=== PATIENT | female | born 1980 | race Caucasian/White ===

== ENCOUNTER 2019-04-29 19:36 | Emergency (ER) | payer MEDICARE ==
[~2019-04-29] VITALS: Ht 170.2 cm; Wt 161.0 kg
--- OUTSIDE RECORDS SUMMARY | 2019-04-29 19:38 | XMS REPORT ---
[facility] Address Unknown Phone Unavailable Care Team Providers Care Eligibility Counselor Name Role Phone Unavailable Unavailable Payers Payer Name Policy Type Policy Number Effective Date Expiration Date Problems This patient has no known problems. Allergies, Adverse Reactions, Alerts Allergy Name Allergy Type Status Severity Reaction(s) Onset Date Inactive Date Treating Clinician Comments No Known Allergies DA Active U 2019-04-23 00:00:00 No Known Allergies DA Active U 2019-03-21 00:00:00 No Known Allergies DA Active U 2018-08-13 00:00:00 No Known Allergies DA Active U 2017-08-14 00:00:00 Medications This patient has no known medications. Results Test Description Test Time Test Comments Text Results Atomic Results Result Comments URINALYSIS COMPLETE 2019-04-22 22:45:00 UA COLOR (test code=COLU) YELLOW YELLOW UA APPEARANCE (test code=APPU) CLEAR CLEAR UA GLUCOSE DIPSTICK (test code=DGLUU) norm mg/dL NEGATIVE UA BILIRUBIN DIPSTICK (test code=BILU) NEGATIVE mg/dL NEGATIVE UA KETONE DIPSTICK (test code=KETU) neg mg/dL NEGATIVE UA SPECIFIC GRAVITY (test code=SGU) 1.015 1.001-1.035 UA BLOOD DIPSTICK (test code=NORMAN) neg Alek/uL NEGATIVE UA PH DIPSTICK (test code=BOLA) 5.0 5.0-8.0 UA PROTEIN DIPSTICK (test code=PROU) neg mg/dL Neg-15 UA UROBILINIOGEN DIPSTICK (test code=URO) norm mg/dL 0.0-0.2 UA NITRITE DIPSTICK (test code=ORIANA) NEGATIVE NEGATIVE UA LEUKOCYTE ESTERASE DIPSTICK (test code=LEUU) 100 Arleen/uL (1+) uL NEGATIVE UA WBC (test code=WBCU) 3-5 per HPF 0-5 UA RBC (test code=RBCU) NONE SEEN per HPF 0-5 UA EPITHELIAL CELLS (test code=EPIU) Few (2-5/hpf) per HPF Few UA BACTERIA (test code=BACU) FEW per HPF NONE Urine Source? Clean CatchDRUGS OF ABUSE SCREEN [id number] 22:45:00* Test Item Value Reference Range Comments URN COCAINE (test code=COCAURN) NEGATIVE NEGATIVE URN CANNABINOIDS (test code=CANNABURN) POSITIVE NEGATIVE URN AMPHETAMINE (test code=AMPHETURN) NEGATIVE NEGATIVE URN BARBITURATE (test code=BARBITURN) NEGATIVE NEGATIVE URN BENZODIAZEPINE (test code=BENZOURN) NEGATIVE NEGATIVE URN OPIATES (test code=OPIATURN) NEGATIVE NEGATIVE URN PHENCYCLIDINE (PCP) (test code=PHENCURN) NEGATIVE NEGATIVE Urine Source? Clean Catch- XR CHEST 1 [id number] 22:32:00 Name: SANTANA LEE [facility] : 1980 Age/S:38 /F [address] [facility] Unit#:[id number] Loc: [place] [address] Phys: Sharon Cook MD Dis Date: PHONE #: [phone] Status: REG ER FAX #: [phone] Exam Date: 04/22/2019 Reason: CHEST PAIN EXAMS: CPT CODE: [id number] XR CHEST 1 V 24239 EXAM: Chest X-ray, 1 view; CLINICAL HISTORY: Chest pain; FINDINGS: The lungs are clear, no infiltrates, no edema; no effusions; no pneumothorax; normal cardiomediastinal silhouette. No change compared with a study from March 21, 2019. IMPRESSION: Normal chest x-ray. Location code: [facility] at 2232 Reported and signed by: Bean Ely M.D. CC: Technologist: MARILY LAMBERT RT(R),CT Trnscrpt Data: 04/22/2019 (2231) Gio Orig Print D/T: S: 04/22/2019 (4636) PAGE 1 Signed Report URINALYSIS [id number] 22:31:00* Test Item Value Reference Range Comments UA COLOR (test code=COLU) YELLOW YELLOW UA APPEARANCE (test code=APPU) CLEAR CLEAR UA GLUCOSE DIPSTICK (test code=DGLUU) norm mg/dL NEGATIVE UA BILIRUBIN DIPSTICK (test code=BILU) NEGATIVE mg/dL NEGATIVE UA KETONE DIPSTICK (test code=KETU) neg mg/dL NEGATIVE UA SPECIFIC GRAVITY (test code=SGU) 1.015 1.001-1.035 UA BLOOD DIPSTICK (test code=NORMAN) neg Alek/uL NEGATIVE UA PH DIPSTICK (test code=BOLA) 5.0 5.0-8.0 UA PROTEIN DIPSTICK (test code=PROU) neg mg/dL Neg-15 UA UROBILINIOGEN DIPSTICK (test code=URO) norm mg/dL 0.0-0.2 UA NITRITE DIPSTICK (test code=ORIANA) NEGATIVE NEGATIVE UA LEUKOCYTE ESTERASE DIPSTICK (test code=LEUU) 100 Arleen/uL (1+) uL NEGATIVE UA WBC (test code=WBCU) 3-5 per HPF 0-5 UA RBC (test code=RBCU) NONE SEEN per HPF 0-5 UA EPITHELIAL CELLS (test code=EPIU) Few (2-5/hpf) per HPF Few UA BACTERIA (test code=BACU) FEW per HPF NONE Urine Source? Clean CatchDRUGS OF ABUSE SCREEN [id number] 22:31:00* Test Item Value Reference Range Comments URN COCAINE (test code=COCAURN) NEGATIVE URN CANNABINOIDS (test code=CANNABURN) NEGATIVE URN AMPHETAMINE (test code=AMPHETURN) NEGATIVE URN BARBITURATE (test code=BARBITURN) NEGATIVE URN BENZODIAZEPINE (test code=BENZOURN) NEGATIVE URN OPIATES (test code=OPIATURN) NEGATIVE URN PHENCYCLIDINE (PCP) (test code=PHENCURN) NEGATIVE Urine Source? Clean CatchURINALYSIS [id number] 22:28:00* Test Item Value Reference Range Comments UA COLOR (test code=COLU) YELLOW YELLOW UA APPEARANCE (test code=APPU) CLEAR CLEAR UA GLUCOSE DIPSTICK (test code=DGLUU) norm mg/dL NEGATIVE UA BILIRUBIN DIPSTICK (test code=BILU) NEGATIVE mg/dL NEGATIVE UA KETONE DIPSTICK (test code=KETU) neg mg/dL NEGATIVE UA SPECIFIC GRAVITY (test code=SGU) 1.015 1.001-1.035 UA BLOOD DIPSTICK (test code=NORMAN) neg Alek/uL NEGATIVE UA PH DIPSTICK (test code=BOLA) 5.0 5.0-8.0 UA PROTEIN DIPSTICK (test code=PROU) neg mg/dL Neg-15 UA UROBILINIOGEN DIPSTICK (test code=URO) norm mg/dL 0.0-0.2 UA NITRITE DIPSTICK (test code=ORIANA) NEGATIVE NEGATIVE UA LEUKOCYTE ESTERASE DIPSTICK (test code=LEUU) 100 Arleen/uL (1+) uL NEGATIVE UA WBC (test code=WBCU) per HPF 0-5 UA RBC (test code=RBCU) per HPF 0-5 UA EPITHELIAL CELLS (test code=EPIU) per HPF Few UA BACTERIA (test code=BACU) per HPF NONE Urine Source? Clean CatchDRUGS OF ABUSE SCREEN [id number] 22:28:00* Test Item Value Reference Range Comments URN COCAINE (test code=COCAURN) NEGATIVE URN CANNABINOIDS (test code=CANNABURN) NEGATIVE URN AMPHETAMINE (test code=AMPHETURN) NEGATIVE URN BARBITURATE (test code=BARBITURN) NEGATIVE URN BENZODIAZEPINE (test code=BENZOURN) NEGATIVE URN OPIATES (test code=OPIATURN) NEGATIVE URN PHENCYCLIDINE (PCP) (test code=PHENCURN) NEGATIVE Urine Source? Clean CatchBASIC METABOLIC [id number] 22:04:00* Test Item Value Reference Range Comments SODIUM (test code=NA) 139 mmol/L 136-145 POTASSIUM (test code=K) 3.9 mmol/L 3.5-5.1 CHLORIDE (test code=CL) 100 mmol/L 101-109 CARBON DIOXIDE (test code=CO2) 30.1 mmol/L 21-32 ANION GAP (test code=GAP) 13 mmol/L 10-20 GLUCOSE (test code=GLU) 98 mg/dL 74-106 BLOOD UREA NITROGEN (test code=BUN) 16 mg/dL 3-21 GLOMERULAR FILTRATION RATE (test code=GFR) 57 mL/min >=60 Estimated GFR by using Modified MDRD formula.Chronic kidney disease is defined as either kidney damageor GFR <60 mL/min/1.73 m2 for >3 months. CREATININE (test code=CREAT) 1.06 mg/dL 0.55-1.3 BUN/CREATININE RATIO (test code=BUN/CREA) 15.1 10-20 CALCIUM (test code=CA) 8.9 mg/dL 8.4-10.2 HEPATIC FUNCTION [id number] 22:04:00* Test Item Value Reference Range Comments TOTAL PROTEIN (test code=PROT) 8.0 g/dL 6.5-8.4 ALBUMIN (test code=ALB) 3.4 g/dL 3.4-4.8 GLOBULIN (test code=GLOB) 4.6 G/DL 1-10 ALBUMIN/GLOBULIN RATIO (test code=A/G) 0.74 RATIO 0.75-1.50 BILIRUBIN TOTAL (test code=BILT) 0.30 mg/dL 0.0-1.0 BILIRUBIN DIRECT (test code=BILD) 0.10 mg/dL 0.0-0.30 SGOT/AST (test code=AST) 22 U/L 6-32 SGPT/ALT (test code=ALT) 23 U/L 12-78 Note: Change in REFERENCE RANGE due to new reagent method. ALKALINE PHOSPHATASE TOTAL (test code=ALKP) 145 U/L 38-126 [id number] 22:04:00* Test Item Value Reference Range Comments LIPASE (test code=LIP) 90 U/L 128-270 [id number] 22:04:00* Test Item Value Reference Range Comments MAGNESIUM (test code=MAG) 1.8 mg/dL 1.6-2.3 HCG SERUM [id number] 22:04:00* Test Item Value Reference Range Comments HCG SERUM QUAL (test code=HCGQL) NEGATIVE NEGATIVE This HCGQL test is NOT applicable for MALE patients.Check with nurse about probable order error.If Tumor Marker Test needed, nurse should order test "HCGTU"(Test #550.24979) [id number] 22:04:00* Test Item Value Reference Range Comments TROPONIN-I (test code=TROPI) <0.015 ng/mL 0.00-0.056 BASIC METABOLIC [id number] 22:00:00* Test Item Value Reference Range Comments SODIUM (test code=NA) 139 mmol/L 136-145 POTASSIUM (test code=K) 3.9 mmol/L 3.5-5.1 CHLORIDE (test code=CL) 100 mmol/L 101-109 CARBON DIOXIDE (test code=CO2) 30.1 mmol/L 21-32 ANION GAP (test code=GAP) 13 mmol/L 10-20 GLUCOSE (test code=GLU) 98 mg/dL 74-106 BLOOD UREA NITROGEN (test code=BUN) 16 mg/dL 3-21 GLOMERULAR FILTRATION RATE (test code=GFR) 57 mL/min >=60 Estimated GFR by using Modified MDRD formula.Chronic kidney disease is defined as either kidney damageor GFR <60 mL/min/1.73 m2 for >3 months. CREATININE (test code=CREAT) 1.06 mg/dL 0.55-1.3 BUN/CREATININE RATIO (test code=BUN/CREA) 15.1 10-20 CALCIUM (test code=CA) 8.9 mg/dL 8.4-10.2 HEPATIC FUNCTION [id number] 22:00:00* Test Item Value Reference Range Comments TOTAL PROTEIN (test code=PROT) 8.0 g/dL 6.5-8.4 ALBUMIN (test code=ALB) 3.4 g/dL 3.4-4.8 GLOBULIN (test code=GLOB) 4.6 G/DL 1-10 ALBUMIN/GLOBULIN RATIO (test code=A/G) 0.74 RATIO 0.75-1.50 BILIRUBIN TOTAL (test code=BILT) 0.30 mg/dL 0.0-1.0 BILIRUBIN DIRECT (test code=BILD) 0.10 mg/dL 0.0-0.30 SGOT/AST (test code=AST) 22 U/L 6-32 SGPT/ALT (test code=ALT) 23 U/L 12-78 Note: Change in REFERENCE RANGE due to new reagent method. ALKALINE PHOSPHATASE TOTAL (test code=ALKP) 145 U/L 38-126 [id number] 22:00:00* Test Item Value Reference Range Comments LIPASE (test code=LIP) 90 U/L 128-270 [id number] 22:00:00* Test Item Value Reference Range Comments MAGNESIUM (test code=MAG) 1.8 mg/dL 1.6-2.3 HCG SERUM [id number] 22:00:00* Test Item Value Reference Range Comments HCG SERUM QUAL (test code=HCGQL) NEGATIVE [id number] 22:00:00* Test Item Value Reference Range Comments TROPONIN-I (test code=TROPI) <0.015 ng/mL 0.00-0.056 B-TYPE NATRIURETIC [id number] 21:51:00* Test Item Value Reference Range Comments B-TYPE NATRIURETIC PEPTIDE (test code=BNP) 13.8 pg/mL 0-100 BASIC METABOLIC [id number] 21:51:00* Test Item Value Reference Range Comments SODIUM (test code=NA) 139 mmol/L 136-145 POTASSIUM (test code=K) 3.9 mmol/L 3.5-5.1 CHLORIDE (test code=CL) 100 mmol/L 101-109 CARBON DIOXIDE (test code=CO2) 30.1 mmol/L 21-32 ANION GAP (test code=GAP) 13 mmol/L 10-20 GLUCOSE (test code=GLU) 98 mg/dL 74-106 BLOOD UREA NITROGEN (test code=BUN) 16 mg/dL 3-21 GLOMERULAR FILTRATION RATE (test code=GFR) 57 mL/min >=60 Estimated GFR by using Modified MDRD formula.Chronic kidney disease is defined as either kidney damageor GFR <60 mL/min/1.73 m2 for >3 months. CREATININE (test code=CREAT) 1.06 mg/dL 0.55-1.3 BUN/CREATININE RATIO (test code=BUN/CREA) 15.1 10-20 CALCIUM (test code=CA) 8.9 mg/dL 8.4-10.2 HEPATIC FUNCTION [id number] 21:51:00* Test Item Value Reference Range Comments TOTAL PROTEIN (test code=PROT) gram/dL 6.4-8.2 ALBUMIN (test code=ALB) g/dL 3.4-5.0 GLOBULIN (test code=GLOB) g/dL 2.7-4.2 ALBUMIN/GLOBULIN RATIO (test code=A/G) 0.75-1.50 BILIRUBIN TOTAL (test code=BILT) mg/dL 0.2-1.2 BILIRUBIN DIRECT (test code=BILD) mg/dL 0.0-0.20 SGOT/AST (test code=AST) IUnit/L 15-37 SGPT/ALT (test code=ALT) U/L 10-69 ALKALINE PHOSPHATASE TOTAL (test code=ALKP) IUnit/L 45-117 [id number] 21:51:00* Test Item Value Reference Range Comments LIPASE (test code=LIP) Unit/L 144-286 [id number] 21:51:00* Test Item Value Reference Range Comments MAGNESIUM (test code=MAG) mg/dL 1.8-2.4 HCG SERUM [id number] 21:51:00* Test Item Value Reference Range Comments HCG SERUM QUAL (test code=HCGQL) NEGATIVE [id number] 21:51:00* Test Item Value Reference Range Comments TROPONIN-I (test code=TROPI) ng/mL 0-0.045 [id number] 21:50:00* Test Item Value Reference Range Comments D-DIMER (test code=DDIMER) 263 ng/ml < 600 CBC W/O [id number] 21:42:00* Test Item Value Reference Range Comments WHITE BLOOD CELL (test code=WBC) 11.5 K/mm3 4.5-12.5 RED BLOOD CELL (test code=RBC) 4.57 mill/mm3 3.7-5.2 HEMOGLOBIN (test code=HGB) 13.3 gram/dL 11.5-15.5 HEMATOCRIT (test code=HCT) 40.0 % 36.0-46.0 MEAN CELL VOLUME (test code=MCV) 87.5 fL 80-98 MEAN CELL HGB (test code=MCH) 29.1 picogram 27.0-33.0 MEAN CELL HGB CONCETRATION (test code=MCHC) 33.3 gram/dL 33.0-36.0 RED CELL DISTRIBUTION WIDTH (test code=RDW) 13.6 % 11.6-16.2 RED CELL DISTRIBUTION WIDTH SD (test code=RDW-SD) 43.2 fL 37.0-51.0 PLATELET COUNT (test code=PLT) 342 K/mm3 150-450 MEAN PLATELET VOLUME (test code=MPV) 10.5 fL 6.7-11.0 - CTA CHEST FOR [id number] 15:04:00 Name: SANTANA LEE [facility] : 1980 Age/S: 38 / F [address] [place] [address] Blvd Unit #: [id number] Loc: [place] [address] Phys: Madan Oconnor Acct: [id number] Dis Date: Status: REG ER PHONE #: [phone] Exam Date: 03/21/2019 1417 FAX #: [phone] Reason: Chest pain, shortness of breath, elevated dimer EXAMS: CPT CODE: [id number] [place] [address] EXAM: CTA CHEST WITH CONTRAST DATE: 03/21/2019 1:07 PM : 1980; Age: 38 years y/o Female INDICATION: Chest pain, shortness of breath, elevated dimer COMPARISON: None TECHNIQUE: Volumetric CT of the chest is acquired during pulmonary arterial phase following intravenous administration of contrast. Coronal and sagittal reconstructions were created. Three-dimensional or MIP reconstructions of the pulmonary arterial system were created at an independent workstation. IV Contrast: 100 mL Isovue DLP: 426 mGy-cm CT imaging performed at this location utilizes radiation dose optimization techniques which include one or more of the following: - Automated exposure control -Adjustment of the mA and/or kV according to patient size -Use of iterative reconstruction technique FINDINGS: Lymph Nodes: There is no mediastinal or hilar lymphadenopathy. No axillary lymphadenopathy. Small calcification is noted in the left thyroid lobe. Heart, pericardium and aorta: The heart is normal in size. Thoracic aorta is normal.. Pulmonary emboli: None. No right heart strain. LUNGS: 3 mm noncalcified nodule along the right major fissure on image 53 of series 2. 3 mm noncalcified nodule in the right lower lobe on image 56. No consolidation. Upper abdomen: No acute findings in visualized upper abdomen. Soft tissues: Normal. Bones: No acute abnormality. Age-related degenerative findings. IMPRESSION: 1. No pulmonary embolism. PAGE 1 Signed Report (CONTINUED) Name: SANTANA LEE [facility] [place] : 1980 Age/S: 38 / F [address] [place] [address] Unit #: [id number] Loc: [place] [address] Phys: Madan Oconnor Acct: [id number] Dis Date: Status: REG ER PHONE #: [phone] Exam Date: 03/21/2019 141 FAX #: [phone] Reason: Chest pain, shortness of breath, elevated dimer EXAMS: CPT C ODE: [id number] [place] [address] <Continued> 2. Two separate 3 mm noncalcified nodule in the right lung. In the absence of risk factors for malignancy, no routine follow- up required. If the patient has a history of smoking or other risk factor to increase their risk of malignancy, then a follow-up chest CT at 12 months is recommended. Reference: Guidelines for Management of Incidental Pulmonary Nodules Detected on CT Images: From the Fleischner Society 2017. FOR INTERNAL CODING PURPOSES ONLY RESULT CODE: [facility] SL: [id number] at 1504 Reported and signed by: Raj Mauricio D.O. CC: Madan BHATT Technologist:RT Re(R)(MRI) CTDI: DLP: Trnscb Date/Time: 03/21/2019 (1504) Clara.[email or web address] Orig Print D/T: S: 03/21/2019 (7090) PAGE 2 Signed Report B-TYPE NATRIURETIC [id number] 13:18:00* Test Item Value Reference Range Comments B-TYPE NATRIURETIC PEPTIDE (test code=BNP) 6.9 PG/ML 0-100 [id number] 13:01:00* Test Item Value Reference Range Comments D-DIMER (test code=DDIMER) 1339 ng/mlFEU <=500 THROMBOSIS AND/OR PULMONARY EMBOLISM AND THE CLINICAL CUT- OFF VALUE FOR EXCLUSION (500 ng/mL FEU) OF THESE CONDITIONSIS VALIDATED BY THE LIVESTOCK LABORER OF THE METHOD. A NEGATIVE D-DIMER RESULT WHEN COMBINED WITH A CLINICALASSESSMENT OF LOW PRETEST PROBABILITY HAS BEEN SHOWN TO HAVEA HIGH NEGATIVE PREDICTIVE VALUE OF DVT OR PE. D-DIMER VALUES >500 ng/mL FEU ARE NOT DIAGNOSTIC FOR DVT, PEor DIC WITHOUT OTHER CONFIRMATORY TESTS AND APPROPRIATECLINICAL EUALUATIONS. PROTHROMBIN [id number] 12:46:00* Test Item Value Reference Range Comments PROTHROMBIN TIME PATIENT (test code=PTP) 11.3 SECONDS 9.3-12.9 INTERNATIONAL NORMAL RATIO (test code=INR) 1.0 0.8-1.2 TARGET INR BY INDICATION Indication INR1. Prophylaxis of venous thrombosis 2.0 - 3.0 (orthopedic surgery), Prophylaxis of venous thrombosis (other than high-risk surgery), Treatment of Deep Vein Thrombosis/Pulmonary Embolism, Prevention of systemic embolism - Tissue heart valves, Acute Myocardial Infarction (to prevent systemic embolism), Valvular heart disease, Atrial Fibrillation, Bileaflet mechanical valve in aortic position.2. Mechanical prosthetic valves (high risk), 2.5 - 3.5 Presence of Lupus Anticoagulant or Antiphospholipid Antibodies, Prevention of systemic embolism - Acute Myocardial Infarction (to prevent recurrent infarct). THROMBOPLASTIN TIME [id number] 12:46:00* Test Item Value Reference Range Comments THROMBOPLASTIN TIME PARTIAL (test code=PTT) 32.8 Seconds 25.0-39.5 Therapeutic Range: 50.4 - 88.3 Seconds Effective 09/25/2018 [id number] 12:45:00* Test Item Value Reference Range Comments MAGNESIUM (test code=MAG) 2.00 mg/dL 1.8-2.4 HCG SERUM [id number] 12:45:00* Test Item Value Reference Range Comments HCG SERUM QUAL (test code=HCGQL) SERUM NEGATIVE NEGATIVE [id number] 12:43:00* Test Item Value Reference Range Comments MAGNESIUM (test code=MAG) mg/dL 1.8-2.4 HCG SERUM [id number] 12:43:00* Test Item Value Reference Range Comments HCG SERUM QUAL (test code=HCGQL) SERUM NEGATIVE NEGATIVE CBC W/AUTO [id number] 12:34:00* Test Item Value Reference Range Comments WHITE BLOOD CELL (test code=WBC) 8.91 x10 3/uL 4.5-11.0 RED BLOOD CELL (test code=RBC) 4.80 x10 6/uL 3.54-5.02 HEMOGLOBIN (test code=HGB) 13.8 g/dL 11.0-15.0 HEMATOCRIT (test code=HCT) 43.1 % 33.0-45.0 MEAN CELL VOLUME (test code=MCV) 89.8 fL 81.0-99.0 MEAN CELL HGB (test code=MCH) 28.8 pg 27.0-33.0 MEAN CELL HGB CONCETRATION (test code=MCHC) 32.0 g/dL 33.0-37.0 RED CELL DISTRIBUTION WIDTH CV (test code=RDW) 13.2 % 11.5-14.5 RED CELL DISTRIBUTION WIDTH SD (test code=RDW-SD) 43.4 fL 37.0-54.0 PLATELET COUNT (test code=PLT) 503 x10 3/uL 150-400 MEAN PLATELET VOLUME (test code=MPV) 9.9 fL 7.0-9.0 NEUTROPHIL % (test code=NT%) 67.4 % 56.0-77.0 IMMATURE GRANULOCYTE % (test code=IG%) 0.2 % 0.0-2.0 LYMPHOCYTE % (test code=LY%) 19.9 % 14.0-32.0 MONOCYTE % (test code=MO%) 8.1 % 4.8-9.0 EOSINOPHIL % (test code=EO%) 4.3 % 0.3-3.7 BASOPHIL % (test code=BA%) 0.1 % 0.0-2.0 NUCLEATED RBC % (test code=NRBC%) 0.0 % 0-0 NEUTROPHIL # (test code=NT#) 6.01 x10 3/uL 2.0-7.6 IMMATURE GRANULOCYTE # (test code=IG#) 0.02 x10 3/uL 0.00-0.03 LYMPHOCYTE # (test code=LY#) 1.77 x10 3/uL 1.0-3.8 MONOCYTE # (test code=MO#) 0.72 x10 3/uL 0.1-0.8 EOSINOPHIL # (test code=EO#) 0.38 x10 3/uL 0.0-0.2 BASOPHIL # (test code=BA#) 0.01 x10 3/uL 0.0-0.2 NUCLEATED RBC # (test code=NRBC#) 0.00 x10 3/uL 0.0-0.1 MANUAL DIFF REQUIRED (test code=MDIFF) NO - XR CHEST 2 [id number] 12:33:00 FAX: Madan Oconnor [phone] [place]: St: REG Name: SANTANA JOHNSON [facility] : [birth year] Age/S: 38/F [address] [place] [address] Unit #: [id number] Loc: [place] [address] Phys: Madan Oconnor Acct: [id number] Dis Date: Status: REG ER PHONE #: [phone] Exam Date: 03/21/2019 1220 FAX #: [phone] Reason: SOB EXAMS: CPT CODE: [id number] XR CHEST 2 V 62494 CLINICAL HISTORY: SOB COMPARISON: November 21, 2018 PA and lateral films of the chest demo nstrate that heart size is normal. Lung rivas are clear. No evidence of pneumonia or congestive failure is seen. Regional skeletal structures de monstrate no acute abnormality. IMPRESSION: No evidence of pneumonia or congestive failure is seen. at 1233 Reported and emelia d by: Sabas Hutchinson M.D. CC: Madan BHATT Technologist: JuniRT Sania(R) Trnscrd Date/Time/By: 03/21/2019 (1233) : By: George Orig Print D/T: S: 03/21/2019 (1233) PAGE 1 Signed Report CHEMISTRY 8 PROFILE 2019-03-21 12:22:00* Test Item Value Reference Range Comments ISTAT-SODIUM (test code=NAP) MMOL/L 134-147 ISTAT-POTASSIUM (test code=KP) MMOL/L 3.4-5.0 ISTAT-CHLORIDE (test code=CLP) MMOL/L 100-108 ISTAT CARBON DIOXIDE (test code=ISTAT-CO2) mmol/L 21-33 ISTAT CALCIUM IONIZED (test code=ISTAT-TAMMIE) MG/DL 1.12-1.32 ISTAT-GLUCOSE (test code=GLUP) MG/DL 70-110 ISTAT-BUN (test code=BUNP) MG/DL 7-18 BEDSIDE CREATININE (test code=CREATBED) MG/DL 0.6-1.3 GLOMERULAR FILTRATION RATE POC (test code=GFRBED) 84 ML/MIN CHEMISTRY 8 [id number] 12:22:00* Test Item Value Reference Range Comments ISTAT-SODIUM (test code=NAP) 138 MMOL/L 134-147 ISTAT-POTASSIUM (test code=KP) 4.1 MMOL/L 3.4-5.0 ISTAT-CHLORIDE (test code=CLP) 99 MMOL/L 100-108 Performed by certified verifier operator at [facility] ISTAT CARBON DIOXIDE (test code=ISTAT-CO2) 28.0 mmol/L 21-33 ISTAT CALCIUM IONIZED (test code=ISTAT-TAMMIE) 1.12 MG/DL 1.12-1.32 ISTAT-GLUCOSE (test code=GLUP) 96 MG/DL 70-110 ISTAT-BUN (test code=BUNP) 16 MG/DL 7-18 BEDSIDE CREATININE (test code=CREATBED) 0.8 MG/DL 0.6-1.3 GLOMERULAR FILTRATION RATE POC (test code=GFRBED) 84 ML/MIN TROPONIN-I [id number] 12:22:00* Test Item Value Reference Range Comments TROPONIN-I RAPID (test code=TROPIRAP) 0.00 ng/mL 0.00-0.08 Performed by certified verifier operator at [facility] Negative: <=0.08 Positive: >=0.09An elevated troponin value alone is not sufficient todiagnose a myocardial infarction. Rather, the patient sclinical presentation (history, physical exam) and ECGshould be used in conjunction with troponin in thediagnostic evaluation of suspected myocardial infarction. Aserial sampling protocol is recommended to facilitate the identification of temporal changes in troponin levels characteristic of GA. LACTIC ACID [id number] 12:11:00* Test Item Value Reference Range Comments LACTIC ACID POC (test code=LACTP) 1.3 MMOL/L 0.90-1.70 Performed by certified verifier operator at [facility] ACUTE HEPATITIS [id number] 11:36:00* Test Item Value Reference Range Comments AB HEPATITIS A IGM (test code=HAVMAB) NON REACTIVE INDEX NON REACT. AG HEPATITIS B SURFACE (test code=HBSAG) NON REACTIVE INDEX NonReactive AB HEPATITIS B CORE IGM (test code=HBCMAB) NON REACTIVE INDEX NON REACT. AB HEPATITIS C (test code=HCVAB) NON REACTIVE INDEX NON REACT. - US ABDOMEN [id number] 10:50:00 Name: SANTANA LEE [facility] : 1980 Age/S: 38 / F [address] [place] [address] Unit #: [id number] Loc: [place] [address] Phys: Efraín Dunaway MD Acct: [id number] Dis Date: Status: ADM IN PHONE #: [phone] Exam Date: 11/24/2018 1034 FAX #: [phone] Reason: elevated liver enzymes EXAMS: CPT CODE: [id number] US ABDOMEN COMPLETE 30303 PROCEDURE: ABDOMINAL ULTRASOUND INDICATION: Elevated liver enzymes COMPARISON: 06/30/2015 TECHNIQUE: Sonographic evaluation of the abdomen was performed with supplemental color and pulsed Doppler. FINDINGS: LIVER: The liver is normal in size, contour and morphology with normal parenchymal echogenicity. GALLBLADDER: Surgically absent BILE DUCTS: The common duct measures 4 mm. PANCREAS: Mostly obscured by bowel gas SPLEEN: The spleen is normal. KIDNEYS: The right kidney measures 9.0 cm in length. Normal contour and parenchymal echogenicity. There is no hydronephrosis, nephrolithiasis, mass lesion or perinephric collection. The left kidney measures 10.0 cm in length. Normal contour and parenchymal echogenicity. There is no hydronephrosis, nephrolithiasis, mass lesion or perinephric collection. AORTA AND INFERIOR VENA CAVA: Aorta is partially obscured. IVC is patent. Additional comments: None. IMPRESSION: 1. Status post cholecystectomy. No biliary dilatation. 2. Limited visualization of aorta and pancreas. SL: [id number] PAGE 1 Signed Report (CONTINUED) Name: SANTANA LEE [facility] : 1980 Age/S: 38 / F [address] [place] [address] Blvd Unit #: [id number] Loc: [place] [address] Phys: Efraín Dunaway MD Acct: [id number] Dis Date: Status: ADM IN PHONE #: [phone] Exam Date: 11/24/2018 1034 FAX #: [phone] Reason: elevated liver enzymes EXAMS: CPT CODE: [id number] US ABDOMEN COMPLETE [id number] < Continued> at 1050 Reported and signed by: Eduardo Deluna M.D. CC: Beto Ryder MD; Efraín Dunaway MD Technologist: Carmen Soria RDMS(AB)(OB) Trnscb Date/Time: 11/24/2018 (1050) [id number].[email or web address] Orig Print D/T: S: 11/24/2018 (1056) Probe: PAGE 2 Signed Report ACUTE HEPATITIS [id number] 09:01:00* Test Item Value Reference Range Comments AB HEPATITIS A IGM (test code=HAVMAB) INDEX NON REACT. AG HEPATITIS B SURFACE (test code=HBSAG) NON REACTIVE INDEX NonReactive AB HEPATITIS B CORE IGM (test code=HBCMAB) INDEX NON REACT. AB HEPATITIS C (test code=HCVAB) NON REACTIVE INDEX NON REACT. ACUTE HEPATITIS [id number] 08:33:00* Test Item Value Reference Range Comments AB HEPATITIS A IGM (test code=HAVMAB) INDEX NON REACT. AG HEPATITIS B SURFACE (test code=HBSAG) NON REACTIVE INDEX NonReactive AB HEPATITIS B CORE IGM (test code=HBCMAB) INDEX NON REACT. AB HEPATITIS C (test code=HCVAB) INDEX NON REACT. CBC W/AUTO [id number] 08:07:00* Test Item Value Reference Range Comments WHITE BLOOD CELL (test code=WBC) 13.87 x10 3/uL 4.5-11.0 RED BLOOD CELL (test code=RBC) 5.38 x10 6/uL 3.54-5.02 HEMOGLOBIN (test code=HGB) 15.3 g/dL 11.0-15.0 HEMATOCRIT (test code=HCT) 47.3 % 33.0-45.0 MEAN CELL VOLUME (test code=MCV) 87.9 fL 81.0-99.0 MEAN CELL HGB (test code=MCH) 28.4 pg 27.0-33.0 MEAN CELL HGB CONCETRATION (test code=MCHC) 32.3 g/dL 33.0-37.0 RED CELL DISTRIBUTION WIDTH CV (test code=RDW) 14.0 % 11.5-14.5 RED CELL DISTRIBUTION WIDTH SD (test code=RDW-SD) 45.1 fL 37.0-54.0 PLATELET COUNT (test code=PLT) 466 x10 3/uL 150-400 MEAN PLATELET VOLUME (test code=MPV) 10.5 fL 7.0-9.0 NEUTROPHIL % (test code=NT%) 59.1 % 56.0-77.0 IMMATURE GRANULOCYTE % (test code=IG%) 0.5 % 0.0-2.0 LYMPHOCYTE % (test code=LY%) 25.1 % 14.0-32.0 MONOCYTE % (test code=MO%) 11.5 % 4.8-9.0 EOSINOPHIL % (test code=EO%) 3.4 % 0.3-3.7 BASOPHIL % (test code=BA%) 0.4 % 0.0-2.0 NUCLEATED RBC % (test code=NRBC%) 0.0 % 0-0 NEUTROPHIL # (test code=NT#) 8.20 x10 3/uL 2.0-7.6 IMMATURE GRANULOCYTE # (test code=IG#) 0.07 x10 3/uL 0.00-0.03 LYMPHOCYTE # (test code=LY#) 3.48 x10 3/uL 1.0-3.8 MONOCYTE # (test code=MO#) 1.60 x10 3/uL 0.1-0.8 EOSINOPHIL # (test code=EO#) 0.47 x10 3/uL 0.0-0.2 BASOPHIL # (test code=BA#) 0.05 x10 3/uL 0.0-0.2 NUCLEATED RBC # (test code=NRBC#) 0.00 x10 3/uL 0.0-0.1 MANUAL DIFF REQUIRED (test code=MDIFF) NO COMPREHENSIVE METABOLIC [id number] 07:58:00* Test Item Value Reference Range Comments SODIUM (test code=NA) 131 mEq/L 134-147 POTASSIUM (test code=K) 4.2 mEq/L 3.4-5.0 CHLORIDE (test code=CL) 95 mEq/L 100-108 CARBON DIOXIDE (test code=CO2) 29 mEq/L 21-33 ANION GAP (test code=GAP) 11 0-20 GLUCOSE (test code=GLU) 106 mg/dL 70-110 BLOOD UREA NITROGEN (test code=BUN) 35 mg/dL 7-18 GLOMERULAR FILTRATION RATE (test code=GFR) 41.6 95-105 Units of measure=ml/min/1.73 m2 CREATININE (test code=CREAT) 1.4 mg/dL 0.6-1.3 TOTAL PROTEIN (test code=PROT) 7.7 g/dL 6.4-8.2 ALBUMIN (test code=ALB) 3.40 g/dL 3.4-5.0 CALCIUM (test code=CA) 8.8 mg/dL 8.0-10.5 BILIRUBIN TOTAL (test code=BILT) 0.50 mg/dL 0.0-1.0 SGOT/AST (test code=AST) 27 IUnit/L 15-37 SGPT/ALT (test code=ALT) 80 IUnit/L 15-65 ALKALINE PHOSPHATASE TOTAL (test code=ALKP) 123 IUnit/L 20-125 [id number] 07:58:00* Test Item Value Reference Range Comments MAGNESIUM (test code=MAG) 2.90 mg/dL 1.8-2.4 [id number] 10:59:00* Test Item Value Reference Range Comments MAGNESIUM (test code=MAG) 2.40 mg/dL 1.8-2.4 COMPREHENSIVE METABOLIC [id number] 07:56:00* Test Item Value Reference Range Comments SODIUM (test code=NA) 132 mEq/L 134-147 POTASSIUM (test code=K) 3.4 mEq/L 3.4-5.0 CHLORIDE (test code=CL) 94 mEq/L 100-108 CARBON DIOXIDE (test code=CO2) 32 mEq/L 21-33 ANION GAP (test code=GAP) 9 0-20 GLUCOSE (test code=GLU) 86 mg/dL 70-110 BLOOD UREA NITROGEN (test code=BUN) 33 mg/dL 7-18 GLOMERULAR FILTRATION RATE (test code=GFR) 61.4 95-105 Units of measure=ml/min/1.73 m2 CREATININE (test code=CREAT) 1.0 mg/dL 0.6-1.3 TOTAL PROTEIN (test code=PROT) 7.4 g/dL 6.4-8.2 ALBUMIN (test code=ALB) 3.30 g/dL 3.4-5.0 CALCIUM (test code=CA) 9.1 mg/dL 8.0-10.5 BILIRUBIN TOTAL (test code=BILT) 0.50 mg/dL 0.0-1.0 SGOT/AST (test code=AST) 74 IUnit/L 15-37 SGPT/ALT (test code=ALT) 109 IUnit/L 15-65 ALKALINE PHOSPHATASE TOTAL (test code=ALKP) 121 IUnit/L 20-125 CBC W/AUTO [id number] 07:54:00* Test Item Value Reference Range Comments WHITE BLOOD CELL (test code=WBC) 10.89 x10 3/uL 4.5-11.0 RED BLOOD CELL (test code=RBC) 5.14 x10 6/uL 3.54-5.02 HEMOGLOBIN (test code=HGB) 14.7 g/dL 11.0-15.0 HEMATOCRIT (test code=HCT) 45.4 % 33.0-45.0 MEAN CELL VOLUME (test code=MCV) 88.3 fL 81.0-99.0 MEAN CELL HGB (test code=MCH) 28.6 pg 27.0-33.0 MEAN CELL HGB CONCETRATION (test code=MCHC) 32.4 g/dL 33.0-37.0 RED CELL DISTRIBUTION WIDTH CV (test code=RDW) 14.0 % 11.5-14.5 RED CELL DISTRIBUTION WIDTH SD (test code=RDW-SD) 45.0 fL 37.0-54.0 PLATELET COUNT (test code=PLT) 450 x10 3/uL 150-400 MEAN PLATELET VOLUME (test code=MPV) 10.6 fL 7.0-9.0 NEUTROPHIL % (test code=NT%) 54.8 % 56.0-77.0 IMMATURE GRANULOCYTE % (test code=IG%) 0.6 % 0.0-2.0 LYMPHOCYTE % (test code=LY%) 30.6 % 14.0-32.0 MONOCYTE % (test code=MO%) 11.3 % 4.8-9.0 EOSINOPHIL % (test code=EO%) 2.5 % 0.3-3.7 BASOPHIL % (test code=BA%) 0.2 % 0.0-2.0 NUCLEATED RBC % (test code=NRBC%) 0.0 % 0-0 NEUTROPHIL # (test code=NT#) 5.98 x10 3/uL 2.0-7.6 IMMATURE GRANULOCYTE # (test code=IG#) 0.06 x10 3/uL 0.00-0.03 LYMPHOCYTE # (test code=LY#) 3.33 x10 3/uL 1.0-3.8 MONOCYTE # (test code=MO#) 1.23 x10 3/uL 0.1-0.8 EOSINOPHIL # (test code=EO#) 0.27 x10 3/uL 0.0-0.2 BASOPHIL # (test code=BA#) 0.02 x10 3/uL 0.0-0.2 NUCLEATED RBC # (test code=NRBC#) 0.00 x10 3/uL 0.0-0.1 MANUAL DIFF REQUIRED (test code=MDIFF) NO - XR CHEST 1 [id number] 10:02:00 FAX: Joseph Jordan MD [phone] [place]: St: [facility] FAX: Beto Neri [phone] Name: [facility] [place] : 1980 Age/S: 38/F [address] [place] [address] Unit #: [id number] Loc: G.33[address] [place] [address] Phys: Joseph Grimaldo MD Acct: [id number] Dis Date: Status: ADM IN PHONE #: [phone] Exam Date: 11/21/2018 1001 FAX #: [phone] Reason: sob EXAMS: CPT CODE: [id number] XR CHEST 1 V 22896 Portable chest performed November 21, 2018 0906 hours. COMPARISON: November 18, 2018. CLINICAL HISTORY: Sort of breath. DISCUSSION: Single portable chest is submitted. Lungs are clear. Cardiothymic silhouette and osseous structures are within normal limits. IMPRESSION: Normal portable chest x-ray. El ectronically Signed by Иван Angela on 11/21/2018 at 1002 Reported and signed by: Susan Angela M.D. CC: Ginny Grimaldo MD; Beto Ryder MD Technologist: RT Nita(R) Trnscrd Date/Time/By: 11/21/2018 (100 2) : By: JaciNMG Orig Print D/T: S: 11/21/2018 (1007) PAGE 1 Signed Report BASIC METABOLIC [id number] 06:45:00* Test Item Value Reference Range Comments SODIUM (test code=NA) 136 mEq/L 134-147 POTASSIUM (test code=K) 3.4 mEq/L 3.4-5.0 CHLORIDE (test code=CL) 97 mEq/L 100-108 CARBON DIOXIDE (test code=CO2) 32 mEq/L 21-33 ANION GAP (test code=GAP) 10 0-20 GLUCOSE (test code=GLU) 96 mg/dL 70-110 BLOOD UREA NITROGEN (test code=BUN) 19 mg/dL 7-18 GLOMERULAR FILTRATION RATE (test code=GFR) 61.4 95-105 Units of measure=ml/min/1.73 m2 CREATININE (test code=CREAT) 1.0 mg/dL 0.6-1.3 CALCIUM (test code=CA) 8.6 mg/dL 8.0-10.5 TSH REFLEX TO [id number] 06:45:00* Test Item Value Reference Range Comments TSH REFLEX TO FT4 (test code=TSHREFLEX) 1.74 IU/mL 0.42-5.47 CBC W/AUTO [id number] 06:06:00* Test Item Value Reference Range Comments WHITE BLOOD CELL (test code=WBC) 16.58 x10 3/uL 4.5-11.0 RED BLOOD CELL (test code=RBC) 4.49 x10 6/uL 3.54-5.02 HEMOGLOBIN (test code=HGB) 12.7 g/dL 11.0-15.0 HEMATOCRIT (test code=HCT) 39.0 % 33.0-45.0 MEAN CELL VOLUME (test code=MCV) 86.9 fL 81.0-99.0 MEAN CELL HGB (test code=MCH) 28.3 pg 27.0-33.0 MEAN CELL HGB CONCETRATION (test code=MCHC) 32.6 g/dL 33.0-37.0 RED CELL DISTRIBUTION WIDTH CV (test code=RDW) 14.1 % 11.5-14.5 RED CELL DISTRIBUTION WIDTH SD (test code=RDW-SD) 45.1 fL 37.0-54.0 PLATELET COUNT (test code=PLT) 405 x10 3/uL 150-400 MEAN PLATELET VOLUME (test code=MPV) 10.6 fL 7.0-9.0 NEUTROPHIL % (test code=NT%) 77.3 % 56.0-77.0 IMMATURE GRANULOCYTE % (test code=IG%) 0.7 % 0.0-2.0 LYMPHOCYTE % (test code=LY%) 13.3 % 14.0-32.0 MONOCYTE % (test code=MO%) 8.5 % 4.8-9.0 EOSINOPHIL % (test code=EO%) 0.1 % 0.3-3.7 BASOPHIL % (test code=BA%) 0.1 % 0.0-2.0 NUCLEATED RBC % (test code=NRBC%) 0.0 % 0-0 NEUTROPHIL # (test code=NT#) 12.82 x10 3/uL 2.0-7.6 IMMATURE GRANULOCYTE # (test code=IG#) 0.11 x10 3/uL 0.00-0.03 LYMPHOCYTE # (test code=LY#) 2.21 x10 3/uL 1.0-3.8 MONOCYTE # (test code=MO#) 1.41 x10 3/uL 0.1-0.8 EOSINOPHIL # (test code=EO#) 0.01 x10 3/uL 0.0-0.2 BASOPHIL # (test code=BA#) 0.02 x10 3/uL 0.0-0.2 NUCLEATED RBC # (test code=NRBC#) 0.00 x10 3/uL 0.0-0.1 MANUAL DIFF REQUIRED (test code=MDIFF) NO B-TYPE NATRIURETIC [id number] 13:09:00* Test Item Value Reference Range Comments B-TYPE NATRIURETIC PEPTIDE (test code=BNP) 1237.1 PG/ML 0-100 BASIC METABOLIC [id number] 05:02:00* Test Item Value Reference Range Comments SODIUM (test code=NA) 138 mEq/L 134-147 POTASSIUM (test code=K) 4.3 mEq/L 3.4-5.0 CHLORIDE (test code=CL) 109 mEq/L 100-108 CARBON DIOXIDE (test code=CO2) 22 mEq/L 21-33 ANION GAP (test code=GAP) 11 0-20 GLUCOSE (test code=GLU) 154 mg/dL 70-110 BLOOD UREA NITROGEN (test code=BUN) 16 mg/dL 7-18 GLOMERULAR FILTRATION RATE (test code=GFR) 69.3 95-105 Units of measure=ml/min/1.73 m2 CREATININE (test code=CREAT) 0.9 mg/dL 0.6-1.3 CALCIUM (test code=CA) 8.5 mg/dL 8.0-10.5 COMMENTS: To be done morning of Heart CathCBC W/AUTO [id number] 04:49:00* Test Item Value Reference Range Comments WHITE BLOOD CELL (test code=WBC) 22.62 x10 3/uL 4.5-11.0 RED BLOOD CELL (test code=RBC) 4.34 x10 6/uL 3.54-5.02 HEMOGLOBIN (test code=HGB) 12.4 g/dL 11.0-15.0 HEMATOCRIT (test code=HCT) 38.6 % 33.0-45.0 MEAN CELL VOLUME (test code=MCV) 88.9 fL 81.0-99.0 MEAN CELL HGB (test code=MCH) 28.6 pg 27.0-33.0 MEAN CELL HGB CONCETRATION (test code=MCHC) 32.1 g/dL 33.0-37.0 RED CELL DISTRIBUTION WIDTH CV (test code=RDW) 14.3 % 11.5-14.5 RED CELL DISTRIBUTION WIDTH SD (test code=RDW-SD) 45.9 fL 37.0-54.0 PLATELET COUNT (test code=PLT) 387 x10 3/uL 150-400 MEAN PLATELET VOLUME (test code=MPV) 10.3 fL 7.0-9.0 NEUTROPHIL % (test code=NT%) 92.2 % 56.0-77.0 IMMATURE GRANULOCYTE % (test code=IG%) 0.6 % 0.0-2.0 LYMPHOCYTE % (test code=LY%) 3.8 % 14.0-32.0 MONOCYTE % (test code=MO%) 3.3 % 4.8-9.0 EOSINOPHIL % (test code=EO%) 0.0 % 0.3-3.7 BASOPHIL % (test code=BA%) 0.1 % 0.0-2.0 NUCLEATED RBC % (test code=NRBC%) 0.0 % 0-0 NEUTROPHIL # (test code=NT#) 20.86 x10 3/uL 2.0-7.6 IMMATURE GRANULOCYTE # (test code=IG#) 0.13 x10 3/uL 0.00-0.03 LYMPHOCYTE # (test code=LY#) 0.86 x10 3/uL 1.0-3.8 MONOCYTE # (test code=MO#) 0.74 x10 3/uL 0.1-0.8 EOSINOPHIL # (test code=EO#) 0.00 x10 3/uL 0.0-0.2 BASOPHIL # (test code=BA#) 0.03 x10 3/uL 0.0-0.2 NUCLEATED RBC # (test code=NRBC#) 0.00 x10 3/uL 0.0-0.1 MANUAL DIFF REQUIRED (test code=MDIFF) NO COMMENTS: To be done morning of Heart CathPROTHROMBIN [id number] 16:28:00* Test Item Value Reference Range Comments PROTHROMBIN TIME PATIENT (test code=PTP) 12.0 SECONDS 9.3-12.9 INTERNATIONAL NORMAL RATIO (test code=INR) 1.1 0.8-1.2 TARGET INR BY INDICATION Indication INR1. Prophylaxis of venous thrombosis 2.0 - 3.0 (orthopedic surgery), Prophylaxis of venous thrombosis (other than high-risk surgery), Treatment of Deep Vein Thrombosis/Pulmonary Embolism, Prevention of systemic embolism - Tissue heart valves, Acute Myocardial Infarction (to prevent systemic embolism), Valvular heart disease, Atrial Fibrillation, Bileaflet mechanical valve in aortic position.2. Mechanical prosthetic valves (high risk), 2.5 - 3.5 Presence of Lupus Anticoagulant or Antiphospholipid Antibodies, Prevention of systemic embolism - Acute Myocardial Infarction (to prevent recurrent infarct). HCG [id number] 16:26:00* Test Item Value Reference Range Comments HCG SERUM (test code=HCG) < 1 0 - 6 NOT > 6 SUGGESTIVE OF EARLY RISES TWO FOLD EVERY 2 DAYS; SUGGEST RE CONFIRMING AFTER 2 DAYS. 150,000-200,[address] TRIMESTER 10,000 - 50,000 2ND & 3RD TRIMESTERResults in maddy-International Units/mL Is patient ? NCOMMENTS: CLEARANCE FOR [id number] 09:05:00* Test Item Value Reference Range Comments TROPONIN-I (test code=TROPI) 1.130 ng/mL 0.000-0.045 Negative: <=0.045 Positive: >=0.046 Correlation with serial results, other cardiac markers andclinical findings is necessary to determine the clinicalsignificance of this result. Results using different methodologies should not be comparedto one another as quantitative results may vary by method. BASIC METABOLIC [id number] 05:55:00* Test Item Value Reference Range Comments SODIUM (test code=NA) 136 mEq/L 134-147 POTASSIUM (test code=K) 4.5 mEq/L 3.4-5.0 CHLORIDE (test code=CL) 107 mEq/L 100-108 CARBON DIOXIDE (test code=CO2) 21 mEq/L 21-33 ANION GAP (test code=GAP) 13 0-20 GLUCOSE (test code=GLU) 154 mg/dL 70-110 BLOOD UREA NITROGEN (test code=BUN) 10 mg/dL 7-18 GLOMERULAR FILTRATION RATE (test code=GFR) 79.4 95-105 Units of measure=ml/min/1.73 m2 CREATININE (test code=CREAT) 0.8 mg/dL 0.6-1.3 CALCIUM (test code=CA) 8.9 mg/dL 8.0-10.5 LIPID PROFILE (CORONARY RISK)2018-11-19 05:55:00* Test Item Value Reference Range Comments TRIGLYCERIDES (test code=TRIG) 110 mg/dL 40-150 CHOLESTEROL (test code=CHOL) 182 mg/dL <200 CHOLESTEROL/HDL RATIO (test code=CHOLHDL) 2.89 RATIO 3.27-4.44 RISK ASSOCIATED WITH CHOL/HDL RATIOS: RISK MALE FEMALE1/2 AVERAGE 3.43 3.27AVERAGE 4.97 4.442X AVERAGE 9.55 7.053X AVERAGE 23.39 11.04 NOTE THAT THE REFERENCE VALUE IS RELATEDTO RISK LEVELS RECOMMENDED BY THE NATL.HEART, LUNG, AND BLOOD INST. HDL CHOLESTEROL (test code=HDL) 63.0 mg/dL 39-96 LIPOPROTEIN LDL (test code=LDL) 97 mg/dL 0-100 <100 [id number] NEAR OPTIMAL/ABOVE [id number] HIGH>ID=615 VERY HIGH*Guidelines provided by the National Cholesterol EducationProgram Adult Treatment Panel III HGBA1C%2018-11-19 05:46:00* Test Item Value Reference Range Comments HGBA1C% (test code=HGBA1C%) 5.5 %A1C 4.8-6.0 CBC W/AUTO [id number] 05:26:00* Test Item Value Reference Range Comments WHITE BLOOD CELL (test code=WBC) 15.47 x10 3/uL 4.5-11.0 RED BLOOD CELL (test code=RBC) 4.79 x10 6/uL 3.54-5.02 HEMOGLOBIN (test code=HGB) 13.7 g/dL 11.0-15.0 HEMATOCRIT (test code=HCT) 41.8 % 33.0-45.0 MEAN CELL VOLUME (test code=MCV) 87.3 fL 81.0-99.0 MEAN CELL HGB (test code=MCH) 28.6 pg 27.0-33.0 MEAN CELL HGB CONCETRATION (test code=MCHC) 32.8 g/dL 33.0-37.0 RED CELL DISTRIBUTION WIDTH CV (test code=RDW) 14.1 % 11.5-14.5 RED CELL DISTRIBUTION WIDTH SD (test code=RDW-SD) 44.7 fL 37.0-54.0 PLATELET COUNT (test code=PLT) 462 x10 3/uL 150-400 MEAN PLATELET VOLUME (test code=MPV) 10.0 fL 7.0-9.0 NEUTROPHIL % (test code=NT%) 91.0 % 56.0-77.0 IMMATURE GRANULOCYTE % (test code=IG%) 0.4 % 0.0-2.0 LYMPHOCYTE % (test code=LY%) 7.3 % 14.0-32.0 MONOCYTE % (test code=MO%) 1.2 % 4.8-9.0 EOSINOPHIL % (test code=EO%) 0.0 % 0.3-3.7 BASOPHIL % (test code=BA%) 0.1 % 0.0-2.0 NUCLEATED RBC % (test code=NRBC%) 0.0 % 0-0 NEUTROPHIL # (test code=NT#) 14.08 x10 3/uL 2.0-7.6 IMMATURE GRANULOCYTE # (test code=IG#) 0.06 x10 3/uL 0.00-0.03 LYMPHOCYTE # (test code=LY#) 1.13 x10 3/uL 1.0-3.8 MONOCYTE # (test code=MO#) 0.19 x10 3/uL 0.1-0.8 EOSINOPHIL # (test code=EO#) 0.00 x10 3/uL 0.0-0.2 BASOPHIL # (test code=BA#) 0.01 x10 3/uL 0.0-0.2 NUCLEATED RBC # (test code=NRBC#) 0.00 x10 3/uL 0.0-0.1 MANUAL DIFF REQUIRED (test code=MDIFF) NO [id number] 05:07:00* Test Item Value Reference Range Comments TROPONIN-I (test code=TROPI) 1.390 ng/mL 0.000-0.045 Negative: <=0.045 Positive: >=0.046 Correlation with serial results, other cardiac markers andclinical findings is necessary to determine the clinicalsignificance of this result. Results using different methodologies should not be comparedto one another as quantitative results may vary by method. [id number] 02:23:00* Test Item Value Reference Range Comments TROPONIN-I (test code=TROPI) 1.420 ng/mL 0.000-0.045 Negative: <=0.045 Positive: >=0.046 Correlation with serial results, other cardiac markers andclinical findings is necessary to determine the clinicalsignificance of this result. Results using different methodologies should not be comparedto one another as quantitative results may vary by method. COMPREHENSIVE METABOLIC [id number] 20:10:00* Test Item Value Reference Range Comments SODIUM (test code=NA) 139 mmol/L 135-148 POTASSIUM (test code=K) 4.2 mmol/L 3.5-5.1 CHLORIDE (test code=CL) 103 mmol/L 101-109 CARBON DIOXIDE (test code=CO2) 23.4 mmol/L 21-32 ANION GAP (test code=GAP) 17 mmol/L 10-20 GLUCOSE (test code=GLU) 128 mg/dL 74-106 BLOOD UREA NITROGEN (test code=BUN) 11 mg/dL 3-21 CREATININE (test code=CREAT) 0.97 mg/dL 0.55-1.3 BUN/CREATININE RATIO (test code=BUN/CREA) 11.3 10-20 TOTAL PROTEIN (test code=PROT) 7.6 g/dL 6.5-8.4 ALBUMIN (test code=ALB) 3.6 g/dL 3.4-4.8 GLOBULIN (test code=GLOB) 4.0 G/DL 1-10 ALBUMIN/GLOBULIN RATIO (test code=A/G) 0.9 RATIO 0.75-1.50 CALCIUM (test code=CA) 8.7 mg/dL 8.4-10.2 BILIRUBIN TOTAL (test code=BILT) 0.50 mg/dL 0.0-1.0 SGOT/AST (test code=AST) 26 U/L 6-32 SGPT/ALT (test code=ALT) 35 U/L 12-78 Note: Change in REFERENCE RANGE due to new reagent method. ALKALINE PHOSPHATASE TOTAL (test code=ALKP) 124 U/L 38-126 [id number] 20:10:00* Test Item Value Reference Range Comments LIPASE (test code=LIP) 58 U/L 128-270 [id number] 20:10:00* Test Item Value Reference Range Comments TROPONIN-I (test code=TROPI) 2.23 ng/mL 0.00-0.056 Results called to EDWARD Joel V.LAB.CB1 11/18/18 2008Critical results verified and read back by Nurse? Y URINALYSIS [id number] 19:58:00* Test Item Value Reference Range Comments UA COLOR (test code=COLU) YELLOW YELLOW UA APPEARANCE (test code=APPU) HAZY CLEAR UA GLUCOSE DIPSTICK (test code=DGLUU) norm mg/dL NEGATIVE UA BILIRUBIN DIPSTICK (test code=BILU) NEGATIVE mg/dL NEGATIVE UA KETONE DIPSTICK (test code=KETU) neg mg/dL NEGATIVE UA SPECIFIC GRAVITY (test code=SGU) 1.010 1.001-1.035 UA BLOOD DIPSTICK (test code=NORMAN) neg Alek/uL NEGATIVE UA PH DIPSTICK (test code=BOLA) 5.0 5.0-8.0 UA PROTEIN DIPSTICK (test code=PROU) 30 (1+) mg/dL Neg-15 UA UROBILINIOGEN DIPSTICK (test code=URO) norm mg/dL 0.0-0.2 UA NITRITE DIPSTICK (test code=ORIANA) NEGATIVE NEGATIVE UA LEUKOCYTE ESTERASE DIPSTICK (test code=LEUU) 25 Arleen/uL (Trace) uL NEGATIVE UA WBC (test code=WBCU) 0-5 per HPF 0-5 UA RBC (test code=RBCU) 0-3 per HPF 0-5 UA EPITHELIAL CELLS (test code=EPIU) Few (2-5/hpf) per HPF Few UA BACTERIA (test code=BACU) FEW per HPF NONE URINALYSIS W/O [id number] 19:58:00* Test Item Value Reference Range Comments UA LEUKOCYTE ESTERASE W REFLEX (test code=LEUUR) 25 Arleen/uL (Trace) NEGATIVE UR HCG [id number] 19:58:00* Test Item Value Reference Range Comments UR HCG QUAL (test code=HCGQLU) NEGATIVE This HCGQL test is NOT applicable for MALE patients.Check with nurse about probable order error.If Tumor Marker Test needed, nurse should order test "HCGTU"(Test #[id number]) - XR CHEST 2 [id number] 19:57:00 Name: SANTANA LEE [facility] : 1980 Age/S:38 /F [address] [facility] Unit#:[id number] Loc: [place] [address] Phys: Eduardo Rowell MD Dis Date: PHONE #: [phone] Status: REG ER FAX #: [phone] Exam Date: 11/18/2018 Reason: SOB EXAMS: CPT CODE: [id number] XR CHEST 2 V [id number] REASON FOR EXAM: SOB Exam Order Date: 11/18/2018 3:10 PM Ordering M.D.: Eduardo Rowell MD PROCEDURE: - XR CHEST 2 V COMPARISON: October 04, 2018. FINDINGS: The cardiomediastinal silhouette is within normal limits for size. There is mild perihilar vascular congestion. Patchy retrocardiac infiltrate is seen. There is bilateral perihilar congestion. The trachea is in midline. The regional bones and the visualized upper abdomen are unchanged. IMPRESSION: Patchy retrocardiac infiltrate in the left lower lobe. Mild perihilar vascular congestion. at 1958 Reported and signed by: Lalo Inman M.D. CC: Eduardo Rowell MD Technologist: Amrita Robles Trnscrpt Data: 11/18/2018 (1958) [id number] Orig Print D/T: S: 11/18/2018 (1999) PAGE 1 Signed Report URINALYSIS COMPLETE 2018-11-18 19:55:00* Test Item Value Reference Range Comments UA COLOR (test code=COLU) YELLOW YELLOW UA APPEARANCE (test code=APPU) HAZY CLEAR UA GLUCOSE DIPSTICK (test code=DGLUU) norm mg/dL NEGATIVE UA BILIRUBIN DIPSTICK (test code=BILU) NEGATIVE mg/dL NEGATIVE UA KETONE DIPSTICK (test code=KETU) neg mg/dL NEGATIVE UA SPECIFIC GRAVITY (test code=SGU) 1.010 1.001-1.035 UA BLOOD DIPSTICK (test code=NORMAN) neg Alek/uL NEGATIVE UA PH DIPSTICK (test code=OBLA) 5.0 5.0-8.0 UA PROTEIN DIPSTICK (test code=PROU) 30 (1+) mg/dL Neg-15 UA UROBILINIOGEN DIPSTICK (test code=URO) norm mg/dL 0.0-0.2 UA NITRITE DIPSTICK (test code=ORIANA) NEGATIVE NEGATIVE UA LEUKOCYTE ESTERASE DIPSTICK (test code=LEUU) uL NEGATIVE UA WBC (test code=WBCU) per HPF 0-5 UA RBC (test code=RBCU) per HPF 0-5 UA EPITHELIAL CELLS (test code=EPIU) per HPF Few UA BACTERIA (test code=BACU) per HPF NONE URINALYSIS W/O [id number] 19:55:00* Test Item Value Reference Range Comments UA LEUKOCYTE ESTERASE W REFLEX (test code=LEUUR) NEGATIVE UR HCG [id number] 19:55:00* Test Item Value Reference Range Comments UR HCG QUAL (test code=HCGQLU) URINALYSIS [id number] 19:55:00* Test Item Value Reference Range Comments UA COLOR (test code=COLU) YELLOW YELLOW UA APPEARANCE (test code=APPU) HAZY CLEAR UA GLUCOSE DIPSTICK (test code=DGLUU) norm mg/dL NEGATIVE UA BILIRUBIN DIPSTICK (test code=BILU) NEGATIVE mg/dL NEGATIVE UA KETONE DIPSTICK (test code=KETU) neg mg/dL NEGATIVE UA SPECIFIC GRAVITY (test code=SGU) 1.010 1.001-1.035 UA BLOOD DIPSTICK (test code=NORMAN) neg Alek/uL NEGATIVE UA PH DIPSTICK (test code=BOLA) 5.0 5.0-8.0 UA PROTEIN DIPSTICK (test code=PROU) 30 (1+) mg/dL Neg-15 UA UROBILINIOGEN DIPSTICK (test code=URO) norm mg/dL 0.0-0.2 UA NITRITE DIPSTICK (test code=ORIANA) NEGATIVE NEGATIVE UA LEUKOCYTE ESTERASE DIPSTICK (test code=LEUU) uL NEGATIVE UA WBC (test code=WBCU) per HPF 0-5 UA RBC (test code=RBCU) per HPF 0-5 UA EPITHELIAL CELLS (test code=EPIU) per HPF Few UA BACTERIA (test code=BACU) per HPF NONE URINALYSIS W/O [id number] 19:55:00* Test Item Value Reference Range Comments UA LEUKOCYTE ESTERASE W REFLEX (test code=LEUUR) NEGATIVE UR HCG [id number] 19:55:00* Test Item Value Reference Range Comments UR HCG QUAL (test code=HCGQLU) DRUGS OF ABUSE SCREEN [id number] 19:27:00* Test Item Value Reference Range Comments URN COCAINE (test code=COCAURN) NEGATIVE NEGATIVE URN CANNABINOIDS (test code=CANNABURN) POSITIVE NEGATIVE URN AMPHETAMINE (test code=AMPHETURN) NEGATIVE NEGATIVE URN BARBITURATE (test code=BARBITURN) NEGATIVE NEGATIVE URN BENZODIAZEPINE (test code=BENZOURN) NEGATIVE NEGATIVE URN OPIATES (test code=OPIATURN) NEGATIVE NEGATIVE URN PHENCYCLIDINE (PCP) (test code=PHENCURN) NEGATIVE NEGATIVE [id number] 16:04:00* Test Item Value Reference Range Comments D-DIMER (test code=DDIMER) < 100 ng/ml < 600 B-TYPE NATRIURETIC [id number] 16:03:00* Test Item Value Reference Range Comments B-TYPE NATRIURETIC PEPTIDE (test code=BNP) 287 pg/mL 0-100 COMPREHENSIVE METABOLIC [id number] 15:51:00* Test Item Value Reference Range Comments SODIUM (test code=NA) 139 mmol/L 135-148 POTASSIUM (test code=K) 4.2 mmol/L 3.5-5.1 CHLORIDE (test code=CL) 103 mmol/L 101-109 CARBON DIOXIDE (test code=CO2) 23.4 mmol/L 21-32 ANION GAP (test code=GAP) 17 mmol/L 10-20 GLUCOSE (test code=GLU) 128 mg/dL 74-106 BLOOD UREA NITROGEN (test code=BUN) 11 mg/dL 3-21 CREATININE (test code=CREAT) 0.97 mg/dL 0.55-1.3 BUN/CREATININE RATIO (test code=BUN/CREA) 11.3 10-20 TOTAL PROTEIN (test code=PROT) gram/dL 6.4-8.2 ALBUMIN (test code=ALB) g/dL 3.4-5.0 GLOBULIN (test code=GLOB) g/dL 2.7-4.2 ALBUMIN/GLOBULIN RATIO (test code=A/G) 0.75-1.50 CALCIUM (test code=CA) 8.7 mg/dL 8.4-10.2 BILIRUBIN TOTAL (test code=BILT) mg/dL 0.2-1.2 SGOT/AST (test code=AST) IUnit/L 15-37 SGPT/ALT (test code=ALT) U/L 10-69 ALKALINE PHOSPHATASE TOTAL (test code=ALKP) IUnit/L 45-117 [id number] 15:51:00* Test Item Value Reference Range Comments LIPASE (test code=LIP) Unit/L 144-286 [id number] 15:51:00* Test Item Value Reference Range Comments TROPONIN-I (test code=TROPI) ng/mL 0-0.045 CBC W/AUTO [id number] 15:50:00* Test Item Value Reference Range Comments WHITE BLOOD CELL (test code=WBC) 15.2 K/mm3 4.5-12.5 RED BLOOD CELL (test code=RBC) 4.76 mill/mm3 3.7-5.2 HEMOGLOBIN (test code=HGB) 13.5 gram/dL 11.5-15.5 HEMATOCRIT (test code=HCT) 41.2 % 36.0-46.0 MEAN CELL VOLUME (test code=MCV) 86.6 fL 80-98 MEAN CELL HGB (test code=MCH) 28.4 picogram 27.0-33.0 MEAN CELL HGB CONCETRATION (test code=MCHC) 32.8 gram/dL 33.0-36.0 RED CELL DISTRIBUTION WIDTH (test code=RDW) 13.8 % 11.6-16.2 RED CELL DISTRIBUTION WIDTH SD (test code=RDW-SD) 43.9 fL 37.0-51.0 PLATELET COUNT (test code=PLT) 492 K/mm3 150-450 MEAN PLATELET VOLUME (test code=MPV) 10.1 fL 6.7-11.0 NEUTROPHIL % (test code=NT%) 80.9 % 39.0-69.0 LYMPHOCYTE % (test code=LY%) 11.0 % 25.0-55.0 MONOCYTE % (test code=MO%) 6.7 % 0.0-10.0 EOSINOPHIL % (test code=EO%) 1.0 % 0.0-5.0 BASOPHIL % (test code=BA%) 0.2 % 0.0-1.0 NEUTROPHIL # (test code=NT#) 12.33 K/mm3 1.8-7.7 LYMPHOCYTE # (test code=LY#) 1.68 K/mm3 1.0-5.0 MONOCYTE # (test code=MO#) 1.02 K/mm3 0-0.8 EOSINOPHIL # (test code=EO#) 0.15 K/mm3 0.0-0.5 BASOPHIL # (test code=BA#) 0.03 K/mm3 0.0-0.2 MANUAL DIFF REQUIRED (test code=MDIFF) NO - XR CHEST 2 [id number] 13:18:00 Name: SANTANA LEE [facility] : 1980 Age/S:38 /F [address] [facility] Unit#:[id number] Loc: [place] [address] Phys: Ursula Doe [employer] Dis Date: PHONE #: [phone] Status: REG ER FAX #: [phone] Exam Date: 10/04/2018 Reason: cough EXAMS: CPT CODE: [id number] XR CHEST 2 V 32841 HISTORY: Cough. COMPARISON: July 29, 2016. AP and lateral view of the chest: No acute infiltrates, effusion or congestion. Cardiac and the mediastinal silhouette are normal. IMPRESSION: No acute infiltrates, effusion or congestion. at 1318 Reported and signed by: Trae Steel M.D. CC: Alok Mosher MD; Ursula Doe NP Technologist: SHAZIA SCHWAB, RT(R),CT Trnscrpt Data: 10/04/2018 ([id number]) [email or web address] Orig Print D/T: S: 10/04/2018 (4222) PAGE 1 Signed Report
[2019-04-29] MEDS ORDERED: ALBUTEROL/IPRATROPIUM 3 ML NEB NEB ONE (20:00)
[2019-04-29] MEDS ORDERED: METHYLPREDNISOLONE SOD SUCC 125 MG/2ML VIAL IV ONE (20:00)
[2019-04-29 21:47] VITALS: BP 162/84
--- NOTE | 2019-04-29 22:22 | Diagnostic Imaging Report ---
EXAMINATION: CHEST 2 VIEWS INDICATION: Short of breath COMPARISON: None FINDINGS: PA and lateral views TUBES and LINES: None. LUNGS: Lungs are well inflated. Lungs are clear. There is no evidence of pneumonia or pulmonary edema. PLEURA: No pleural effusion or pneumothorax. HEART AND MEDIASTINUM: The cardiomediastinal silhouette is unremarkable. BONES AND SOFT TISSUES: There are degenerative changes in the spine. Soft tissues are unremarkable. UPPER ABDOMEN: No free air under the diaphragm. IMPRESSION: No acute thoracic radiographic abnormality. Signed by: Deshawn Nguyen DO on 04/29/2019 10:19 PM
== END 2019-04-29 21:51 | disposition home or self-care (01) ==
LOC: ER 19:36
DX: R06.00 Dyspnea, unspecified (principal); J45.42 Moderate persistent asthma with status asthmaticus; I51.9 Heart disease, unspecified
CPT/HCPCS: 71046; 94640; 99284; J2930